=== PATIENT | male | born 1975 ===

== ENCOUNTER 2020-04-12 13:15 | Day surgery (SDC) | payer OTHER ==
[~2020-04-12] VITALS: Ht 175.3 cm; Wt 110.2 kg
== END 2020-04-12 15:31 | disposition home or self-care (01) ==
LOC: ORSCSDS 13:15
PROVIDERS: Surgery
PROC: 0DJD8ZZ Inspection of Lower Intestinal Tract, Via Natural or Artificial Opening Endoscopic (ICD-10-PCS; principal; 2020-04-12 14:45)
DX: K62.5 Hemorrhage of anus and rectum (principal); Z80.0 Family history of malignant neoplasm of digestive organs; K57.30 Diverticulosis of large intestine without perforation or abscess without bleeding
CPT/HCPCS: J2704; J7120

== ENCOUNTER → 2023-11-25 | Outpatient (CLI) | payer OTHER | END | disposition home or self-care (01) | LOC: LAB 17:19 → LAB SHORT 17:19 | DX: H60.393 Other infective otitis externa, bilateral (principal); H92.13 Otorrhea, bilateral | CPT/HCPCS: 87070; 87205 ==